=== PATIENT | male | born 1955 | race Asian ===

== ENCOUNTER 2021-12-11 08:42 | Observation (INO) | payer OTHER ==
[2021-12-11 09:00] VITALS: BMI 20.1
[2021-12-11] MEDS ORDERED: SODIUM CHLORIDE 1,000 ML IV SCH (09:00)
[2021-12-11 09:55] LABS: BASO % 0.4 % (0-2.0); EOS % 0.2 % (0-4.5); HEMATOCRIT 43.9 % (35.4-49); HEMOGLOBIN 14.6 GM/dL (11.7-16.9); LYMPH % 9.8 % (8-40); MCH 26.1 pg (25.7-33.7); MCHC 33.3 g/dl (32.0-35.9); MEAN CELL VOLUME 78.3 fl (80-96); MEAN PLT VOLUME 10.3 fl (7.5-11.1); MONO % 5.9 % (3.8-10.2); NEUT % 83.7 % (42.8-82.8); RBC 5.61 M/mm3 (4.00-5.60); RDW 14.3 % (11.9-15.9); WHITE BLOOD COUNT 8.8 K/mm3 (4.0-10.0)
[2021-12-11 10:00] LABS: PLATELET COUNT 106 10^3/uL (134-434)
[2021-12-11 10:08] LABS: INR 1.12 (0.83-1.09); PROTHROMBIN TIME (PATIENT) 12.9 SEC (9.7-13.0)
[2021-12-11 10:11] LABS: ACTIVATED PTT 26.9 SECONDS (25.2-36.5)
[2021-12-11 10:22] LABS: ALBUMIN 3.8 g/dl (3.4-5.0); BLOOD UREA NITROGEN 15.2 mg/dL (7-18)
[2021-12-11 10:25] LABS: CREATININE 1.4 mg/dL (0.55-1.3)
[2021-12-11 10:26] LABS: TOT PROT 6.9 g/dl (6.4-8.2)
[2021-12-11 10:28] LABS: BILIRUBIN,TOTAL 1.2 mg/dL (0.2-1)
[2021-12-11 11:41] LABS: PH,URINE 5.5 (5.0-8.0); URINE APPEARANCE CLEAR; URINE BILIRUBIN NEGATIVE (NEGATIVE); URINE COLOR YELLOW; URINE GLUCOSE (UA) TRACE (NEGATIVE); URINE KETONE NEGATIVE (NEGATIVE); URINE LEUK ESTERASE NEGATIVE (NEGATIVE); URINE NITRITE NEGATIVE (NEGATIVE); URINE PROTEIN TRACE (NEGATIVE); URINE UROBILINOGEN 0.2 mg/dL (0.2-1.0)
[2021-12-11] MEDS ORDERED: SODIUM CHLORIDE 0.45%/POT 20 MEQ/1,000 ML INFUS.BAG IV SCH (15:15)
[2021-12-11] MEDS: metoPROLOL SUCCINATE 25 MG TAB.SR.24H (FP) PO SCH (15:32)
[2021-12-11] MEDS ORDERED: metoPROLOL SUCCINATE 25 MG TAB.SR.24H (FP) ONE (16:01)
[2021-12-11] MEDS ORDERED: HEPARIN NA (PORCINE) 5,000 UNITS/ML 1ML VIAL SQ SCH (22:00)
[2021-12-11] MEDS ORDERED: ATORVASTATIN CA 40 MG TABLET (FP) PO SCH (22:00)
[2021-12-11] MEDS ORDERED: ATORVASTATIN CA 40 MG TABLET (FP) ONE (22:58)
[2021-12-11] MEDS ORDERED: HEPARIN NA (PORCINE) 5,000 UNITS/ML 1ML VIAL ONE (22:58)
[2021-12-12] MEDS ORDERED: PANTOPRAZOLE 40 MG TABLET ONE (09:06)
[2021-12-12] MEDS ORDERED: metoPROLOL SUCCINATE 25 MG TAB.SR.24H (FP) ONE (09:06)
[2021-12-12] MEDS ORDERED: ASPIRIN COATED 81 MG TABLET.EC ONE (09:06)
[2021-12-12 09:20] VITALS: PULSE 69
[2021-12-12] MEDS: metoPROLOL SUCCINATE 25 MG TAB.SR.24H (FP) PO SCH (09:20)
[2021-12-12] MEDS ORDERED: ASPIRIN COATED 81 MG TABLET.EC PO SCH (10:00)
[2021-12-12] MEDS ORDERED: PANTOPRAZOLE 40 MG TABLET PO SCH (10:00)
[2021-12-12 10:58] LABS: BASO % 0.4 % (0-2.0); EOS % 0.9 % (0-4.5); HEMATOCRIT 44.3 % (35.4-49); HEMOGLOBIN 15.1 GM/dL (11.7-16.9); LYMPH % 27.3 % (8-40); MCH 26.4 pg (25.7-33.7); MEAN CELL VOLUME 77.5 fl (80-96); MEAN PLT VOLUME 10.7 fl (7.5-11.1); MONO % 8.4 % (3.8-10.2); PLATELET COUNT 104 10^3/uL (134-434); RBC 5.71 M/mm3 (4.00-5.60); RDW 14.5 % (11.9-15.9); WHITE BLOOD COUNT 7.9 K/mm3 (4.0-10.0)
[2021-12-12 11:18] LABS: ALBUMIN 3.8 g/dl (3.4-5.0); CALCIUM 9.2 mg/dL (8.5-10.1)
[2021-12-12 11:19] LABS: BLOOD UREA NITROGEN 16.4 mg/dL (7-18)
[2021-12-12 11:21] LABS: CREATININE 1.4 mg/dL (0.55-1.3)
[2021-12-12 11:23] LABS: BILIRUBIN,TOTAL 1.2 mg/dL (0.2-1); TOT PROT 6.9 g/dl (6.4-8.2)
[2021-12-12 12:11] VITALS: BP 118/70; TEMP 98.1
== END 2021-12-12 13:03 | disposition home or self-care (01) ==
LOC: JER 08:42 → JERBED 11:48 → UNDOADMOB 11:48 → INTOOBSV 11:48 → UNDOADMIN 11:48 → JERBED 12-12 12:59 → UNDODISOB 12-12 13:03
PROVIDERS: ADMIT Family Medicine; ATTEND Family Medicine
PROC: 3E023GC Introduction of Other Therapeutic Substance into Muscle, Percutaneous Approach (ICD-10-PCS; principal; 2021-12-12)
PROC: 3E0337Z Introduction of Electrolytic and Water Balance Substance into Peripheral Vein, Percutaneous Approach (ICD-10-PCS; 2021-12-12)
DX: I25.10 Atherosclerotic heart disease of native coronary artery without angina pectoris (principal); R41.0 Disorientation, unspecified; E78.5 Hyperlipidemia, unspecified; I11.9 Hypertensive heart disease without heart failure; Z95.1 Presence of aortocoronary bypass graft; E11.9 Type 2 diabetes mellitus without complications; Z88.0 Allergy status to penicillin
CPT/HCPCS: 36415; 70450-TC; 70551-TC; 80053; 80061; 81003; 82550; 82553; 82962; 83036; 83735; 84443; 84484; 85025; 85610; 85730; 93005; 93010; 96360; 96372; 99285-25; C9803; G0378; J1644; J3480; U0003; U0005

== ENCOUNTER 2022-06-19 23:09 | Inpatient (IN) | payer OTHER ==
[2022-06-20 00:02] VITALS: BMI 16.0
[2022-06-20 00:53] LABS: INR 1.11 (0.83-1.09); PROTHROMBIN TIME (PATIENT) 12.8 SEC (9.7-13.0)
[2022-06-20 00:56] LABS: ACTIVATED PTT 29.1 SECONDS (25.2-36.5)
[2022-06-20 01:08] LABS: CALCIUM 9.7 mg/dL (8.5-10.1)
[2022-06-20 01:10] LABS: BLOOD UREA NITROGEN 18.3 mg/dL (7-18)
[2022-06-20 01:12] LABS: CREATININE 1.5 mg/dL (0.55-1.3)
[2022-06-20 01:14] LABS: TOT PROT 7.2 g/dl (6.4-8.2)
[2022-06-20 01:27] LABS: BASO % 0.6 % (0-2.0); EOS % 0.5 % (0-4.5); HEMATOCRIT 43.5 % (35.4-49); HEMOGLOBIN 14.5 GM/dL (11.7-16.9); LYMPH % 25.5 % (8-40); MCH 26.5 pg (25.7-33.7); MCHC 33.3 g/dl (32.0-35.9); MEAN CELL VOLUME 79.3 fl (80-96); MEAN PLT VOLUME 10.5 fl (7.5-11.1); MONO % 9.5 % (3.8-10.2); NEUT % 63.9 % (42.8-82.8); PLATELET COUNT 106 10^3/uL (134-434); RBC 5.48 M/mm3 (4.00-5.60); RDW 13.6 % (11.9-15.9); WHITE BLOOD COUNT 8.4 K/mm3 (4.0-10.0)
[2022-06-20 09:48] LABS: BASO % 0.7 % (0-2.0); EOS % 0.5 % (0-4.5); HEMATOCRIT 46.2 % (35.4-49); HEMOGLOBIN 15.5 GM/dL (11.7-16.9); LYMPH % 29.6 % (8-40); MCH 26.8 pg (25.7-33.7); MCHC 33.6 g/dl (32.0-35.9); MEAN CELL VOLUME 79.7 fl (80-96); MEAN PLT VOLUME 10.2 fl (7.5-11.1); MONO % 9.6 % (3.8-10.2); NEUT % 59.6 % (42.8-82.8); PLATELET COUNT 113 10^3/uL (134-434); RBC 5.79 M/mm3 (4.00-5.60); WHITE BLOOD COUNT 6.6 K/mm3 (4.0-10.0)
[2022-06-20 10:13] LABS: CALCIUM 9.9 mg/dL (8.5-10.1)
[2022-06-20 10:14] LABS: ALBUMIN 4.4 g/dl (3.4-5.0)
[2022-06-20 10:17] LABS: CREATININE 1.4 mg/dL (0.55-1.3); TOT PROT 7.8 g/dl (6.4-8.2)
[2022-06-20] MEDS ORDERED: ASPIRIN COATED 81 MG TABLET.EC ONE (12:02)
[2022-06-20] MEDS ORDERED: CLOPIDOGREL BISULFATE 75 MG TABLET (FP) ONE (12:02)
[2022-06-20] MEDS ORDERED: PANTOPRAZOLE 40 MG TABLET PO ONE (12:02)
[2022-06-20] MEDS: CLOPIDOGREL BISULFATE 75 MG TABLET (FP) PO SCH (12:26)
[2022-06-20] MEDS: PANTOPRAZOLE 40 MG TABLET PO SCH (12:28)
[2022-06-20] MEDS: ASPIRIN COATED 81 MG TABLET.EC PO SCH (12:28)
[2022-06-20] MEDS: metoPROLOL SUCCINATE 25 MG TAB.SR.24H (FP) PO SCH (12:28)
[2022-06-20 16:11] LABS: URINE APPEARANCE CLEAR; URINE BILIRUBIN NEGATIVE (NEGATIVE); URINE COLOR YELLOW; URINE GLUCOSE (UA) NEGATIVE (NEGATIVE); URINE KETONE NEGATIVE (NEGATIVE); URINE LEUK ESTERASE NEGATIVE (NEGATIVE); URINE NITRITE NEGATIVE (NEGATIVE); URINE PROTEIN NEGATIVE (NEGATIVE); URINE UROBILINOGEN 0.2 mg/dL (0.2-1.0)
[2022-06-20] MEDS: SODIUM CHLORIDE 1,000 ML IV SCH ×2 (16:34→23:45)
[2022-06-20] MEDS ORDERED: ATORVASTATIN CA 20 MG TABLET (FP) ONE (21:52)
[2022-06-20] MEDS: ATORVASTATIN CA 20 MG TABLET (FP) PO SCH (22:21)
[2022-06-21] MEDS ORDERED: ASPIRIN COATED 81 MG TABLET.EC ONE (10:20)
[2022-06-21] MEDS ORDERED: PANTOPRAZOLE 40 MG TABLET PO ONE (10:20)
[2022-06-21] MEDS ORDERED: CLOPIDOGREL BISULFATE 75 MG TABLET (FP) ONE (10:21)
[2022-06-21] MEDS ORDERED: metoPROLOL SUCCINATE 25 MG TAB.SR.24H (FP) PO ONE (10:21)
[2022-06-21] MEDS ORDERED: ISOSORBIDE MONONITRATE 30 MG TAB.SR.24H (FP) PO ONE ×2 (10:21→10:25)
[2022-06-21] MEDS ORDERED: LISINOPRIL 5 MG TABLET ONE (10:21)
[2022-06-21] MEDS: CLOPIDOGREL BISULFATE 75 MG TABLET (FP) PO SCH (10:29)
[2022-06-21] MEDS: PANTOPRAZOLE 40 MG TABLET PO SCH (10:29)
[2022-06-21] MEDS: ISOSORBIDE MONONITRATE 30 MG TAB.SR.24H (FP) PO SCH (10:29)
[2022-06-21] MEDS: ASPIRIN COATED 81 MG TABLET.EC PO SCH (10:29)
[2022-06-21] MEDS: LISINOPRIL 5 MG TABLET PO SCH (10:29)
[2022-06-21] MEDS: metoPROLOL SUCCINATE 25 MG TAB.SR.24H (FP) PO SCH (10:29)
[2022-06-21 16:40] LABS: URINE APPEARANCE CLEAR; URINE BILIRUBIN NEGATIVE (NEGATIVE); URINE COLOR YELLOW; URINE GLUCOSE (UA) NEGATIVE (NEGATIVE); URINE KETONE NEGATIVE (NEGATIVE); URINE LEUK ESTERASE NEGATIVE (NEGATIVE); URINE NITRITE NEGATIVE (NEGATIVE); URINE PROTEIN NEGATIVE (NEGATIVE); URINE UROBILINOGEN 0.2 mg/dL (0.2-1.0)
[2022-06-21] MEDS ORDERED: ATORVASTATIN CA 20 MG TABLET (FP) ONE (20:45)
[2022-06-21] MEDS: ATORVASTATIN CA 20 MG TABLET (FP) PO SCH (21:27)
[2022-06-21] MEDS: SODIUM CHLORIDE 1,000 ML IV SCH (23:45)
[2022-06-22] MEDS: PANTOPRAZOLE 40 MG TABLET PO SCH (10:56)
[2022-06-22] MEDS: TAMSULOSIN HCL 0.4 MG CAP PO SCH (10:56)
[2022-06-22] MEDS: ASPIRIN COATED 81 MG TABLET.EC PO SCH (10:56)
[2022-06-22] MEDS: ISOSORBIDE MONONITRATE 30 MG TAB.SR.24H (FP) PO SCH (10:56)
[2022-06-22] MEDS: metoPROLOL SUCCINATE 25 MG TAB.SR.24H (FP) PO SCH (10:56)
[2022-06-22] MEDS: CLOPIDOGREL BISULFATE 75 MG TABLET (FP) PO SCH (10:56)
[2022-06-22] MEDS: LISINOPRIL 5 MG TABLET PO SCH (10:56)
[2022-06-22 16:42] LABS: CALCIUM 8.6 mg/dL (8.5-10.1)
[2022-06-22 16:43] LABS: BLOOD UREA NITROGEN 11.1 mg/dL (7-18)
[2022-06-22 16:46] LABS: CREATININE 1.3 mg/dL (0.55-1.3)
[2022-06-22] MEDS: ATORVASTATIN CA 20 MG TABLET (FP) PO SCH (22:22)
[2022-06-23] MEDS: CLOPIDOGREL BISULFATE 75 MG TABLET (FP) PO SCH (10:05)
[2022-06-23] MEDS: ASPIRIN COATED 81 MG TABLET.EC PO SCH (10:05)
[2022-06-23] MEDS: ISOSORBIDE MONONITRATE 30 MG TAB.SR.24H (FP) PO SCH (10:05)
[2022-06-23] MEDS: LISINOPRIL 5 MG TABLET PO SCH (10:05)
[2022-06-23] MEDS: PANTOPRAZOLE 40 MG TABLET PO SCH (10:05)
[2022-06-23] MEDS: TAMSULOSIN HCL 0.4 MG CAP PO SCH (10:05)
[2022-06-23] MEDS: metoPROLOL SUCCINATE 25 MG TAB.SR.24H (FP) PO SCH (10:05)
[2022-06-23 18:54] VITALS: RESP 20
[2022-06-23] MEDS: SODIUM CHLORIDE 1,000 ML IV SCH (20:37)
[2022-06-23] MEDS: ATORVASTATIN CA 20 MG TABLET (FP) PO SCH ×2 (20:37→21:12)
[2022-06-23 22:27] VITALS: BP 102/67; PULSE 71; TEMP 71
== END 2022-06-23 21:30 | DRG 884 ==
LOC: JER 23:09 → JERBED 23:33 → J4W 06-22 06:02
PROVIDERS: ADMIT Internal Medicine; ATTEND Family Medicine
DX: F03.90 Unspecified dementia, unspecified severity, without behavioral disturbance, psychotic disturbance, mood disturbance, and anxiety (principal); E43 Unspecified severe protein-calorie malnutrition; G93.41 Metabolic encephalopathy; G45.9 Transient cerebral ischemic attack, unspecified; R47.01 Aphasia; R64 Cachexia; N17.9 Acute kidney failure, unspecified; Z68.1 Body mass index [BMI] 19.9 or less, adult; I25.10 Atherosclerotic heart disease of native coronary artery without angina pectoris; I10 Essential (primary) hypertension; K21.9 Gastro-esophageal reflux disease without esophagitis; E11.9 Type 2 diabetes mellitus without complications; E78.5 Hyperlipidemia, unspecified; R55 Syncope and collapse; R47.1 Dysarthria and anarthria; E11.22 Type 2 diabetes mellitus with diabetic chronic kidney disease; I12.9 Hypertensive chronic kidney disease with stage 1 through stage 4 chronic kidney disease, or unspecified chronic kidney disease; N18.9 Chronic kidney disease, unspecified; R33.8 Other retention of urine; N31.9 Neuromuscular dysfunction of bladder, unspecified; D69.6 Thrombocytopenia, unspecified
CPT/HCPCS: 0241U-QW; 36415; 70450-TC; 70551-TC; 71045-TC-FY; 76775-TC; 76856-TC; 80048; 80053; 80061; 81003; 82550; 82962; 83036; 84484; 85025; 85610; 85730; 86850; 86900; 86901; 87086; 93005; 93010; 93306-TC; 97116-GP; 97162-GP; 99285-25

== ENCOUNTER 2022-07-26 03:33 | Inpatient (IN) | payer OTHER, BC ==
[2022-07-26] MEDS ORDERED: VANCOMYCIN 1 GM in D5W (PRE-DOCKED) 1,000 MG/250 ML IVPB ONE (03:55)
[2022-07-26] MEDS ORDERED: MEROPENEM 1 GM in DEXTROSE 5%-WATER 100 ML IVPB ONE (03:57)
[2022-07-26] MEDS ORDERED: MEROPENEM 1 GM VIAL (RESTRICTED TO ID) IVPB ONE ×2 (04:00→04:10)
[2022-07-26] MEDS ORDERED: SODIUM CHLORIDE 0.9% 500 ML INFUS.BAG IV ONE (04:01)
[2022-07-26 04:04] LABS: BASO % 0.3 % (0-2.0); HEMATOCRIT 43.4 % (35.4-49); LYMPH % 5.4 % (8-40); MCH 26.1 pg (25.7-33.7); MCHC 32.4 g/dl (32.0-35.9); MEAN CELL VOLUME 80.7 fl (80-96); MEAN PLT VOLUME 11.1 fl (7.5-11.1); MONO % 4.3 % (3.8-10.2); PLATELET COUNT 107 10^3/uL (134-434); RBC 5.37 M/mm3 (4.00-5.60); RDW 14.4 % (11.9-15.9); WHITE BLOOD COUNT 14.7 K/mm3 (4.0-10.0)
[2022-07-26] MEDS ORDERED: VANCOMYCIN/WATER FOR INJ (PEG) 1,000 MG/200 ML BAG IVPB ONE (04:08)
[2022-07-26 04:11] LABS: VENOUS BASE EXCESS -6.7 mmol/L (-2-2); VENOUS O2 SATURATION 65.4 % (70-80); VENOUS PH 7.252 (7.310-7.410)
[2022-07-26 04:13] LABS: INR 1.02 (0.83-1.09); PROTHROMBIN TIME (PATIENT) 11.7 SEC (9.7-13.0)
[2022-07-26 04:15] LABS: ACTIVATED PTT 30.6 SECONDS (25.2-36.5)
[2022-07-26 04:22] LABS: CALCIUM 8.7 mg/dL (8.5-10.1)
[2022-07-26 04:23] LABS: BLOOD UREA NITROGEN 17.3 mg/dL (7-18)
[2022-07-26 04:26] LABS: CREATININE 1.1 mg/dL (0.55-1.3)
[2022-07-26 04:28] LABS: BILIRUBIN,TOTAL 0.7 mg/dL (0.2-1); TOT PROT 6.2 g/dl (6.4-8.2)
[2022-07-26] MEDS ORDERED: DEXAMETHASONE SOD PHOSPHATE 4 MG/1 ML VIAL IVPUSH ONE (04:30)
[2022-07-26] MEDS ORDERED: REMDESIVIR 200 MG in SODIUM CHLORIDE 250 ML IVPB ONE (04:33)
[2022-07-26] MEDS ORDERED: DEXAMETHASONE SOD PHOSPHATE 10 MG/1 ML VIAL ONE (04:37)
[2022-07-26] MEDS ORDERED: ACETAMINOPHEN 1000 MG/100 ML BAG IVPB ONE (05:08)
[2022-07-26 05:19] LABS: LACTIC ACID 3.2 mmol/L (0.4-2.0)
[2022-07-26] MEDS ORDERED: ACETAMINOPHEN INJECTION 100 ML IVPB ONE (06:42)
[2022-07-26 08:20] LABS: EPI CELLS 9 /uL (0-25.1); HYALINE CASTS 2 /uL (0-3.1); URINE APPEARANCE CLOUDY; URINE BACTERIA 240 /uL (0-1359); URINE BILIRUBIN NEGATIVE (NEGATIVE); URINE COLOR YELLOW; URINE GLUCOSE (UA) 3+ (NEGATIVE); URINE KETONE TRACE (NEGATIVE); URINE LEUK ESTERASE 1+ (NEGATIVE); URINE NITRITE NEGATIVE (NEGATIVE); URINE PROTEIN 2+ (NEGATIVE); URINE RBC 1207 /uL (0-23.9); URINE UROBILINOGEN 0.2 mg/dL (0.2-1.0); URINE WBC 3177 /uL (0-25.8)
[2022-07-26] MEDS: CEFEPIME 1 GM in DEXTROSE 5%-WATER - 50 ML IVPB SCH ×2 (14:11→17:49)
[2022-07-26] MEDS: SODIUM CHLORIDE 1,000 ML IV SCH (17:39)
[2022-07-26] MEDS: INSULIN SLIDING SCALE (NOVOLOG) 1 VIAL SQ SCH ×3 (18:04→21:34)
[2022-07-27] MEDS: CEFEPIME 1 GM in DEXTROSE 5%-WATER - 50 ML IVPB SCH ×3 (01:20→17:01)
[2022-07-27] MEDS: REMDESIVIR 100 MG in SODIUM CHLORIDE 250 ML IVPB SCH (06:14)
[2022-07-27] MEDS: INSULIN SLIDING SCALE (NOVOLOG) 1 VIAL SQ SCH ×4 (06:35→21:16)
[2022-07-27] MEDS ORDERED: DEXAMETHASONE SOD PHOSPHATE 10 MG/1 ML VIAL IM SCH (10:00)
[2022-07-27] MEDS: MEMANTINE HCL 5 MG TABLET (UD) PO SCH (10:05)
[2022-07-27] MEDS: CLOPIDOGREL BISULFATE 75 MG TABLET (FP) PO SCH (10:05)
[2022-07-27] MEDS: LISINOPRIL 5 MG TABLET PO SCH (10:05)
[2022-07-27] MEDS: DEXAMETHASONE SOD PHOSPHATE 10 MG/1 ML VIAL IVPUSH SCH (10:05)
[2022-07-27] MEDS: PANTOPRAZOLE 40 MG TABLET PO SCH (10:05)
[2022-07-27] MEDS: metoPROLOL SUCCINATE 25 MG TAB.SR.24H (FP) PO SCH (10:06)
[2022-07-27] MEDS: TAMSULOSIN HCL 0.4 MG CAP PO SCH ×2 (10:06→11:46)
[2022-07-27] MEDS: ASPIRIN COATED 81 MG TABLET.EC PO SCH (10:06)
[2022-07-27] MEDS: SODIUM CHLORIDE 1,000 ML IV SCH ×2 (14:01→19:30)
[2022-07-27 15:11] VITALS: BMI 16.7
[2022-07-28] MEDS: CEFEPIME 1 GM in DEXTROSE 5%-WATER - 50 ML IVPB SCH ×3 (01:24→17:09)
[2022-07-28] MEDS: INSULIN SLIDING SCALE (NOVOLOG) 1 VIAL SQ SCH ×4 (06:26→21:32)
[2022-07-28] MEDS: REMDESIVIR 100 MG in SODIUM CHLORIDE 250 ML IVPB SCH (06:37)
[2022-07-28] MEDS: DEXAMETHASONE SOD PHOSPHATE 10 MG/1 ML VIAL IVPUSH SCH (09:41)
[2022-07-28] MEDS: TAMSULOSIN HCL 0.4 MG CAP PO SCH ×2 (09:41→10:12)
[2022-07-28] MEDS: CLOPIDOGREL BISULFATE 75 MG TABLET (FP) PO SCH (09:41)
[2022-07-28] MEDS: MEMANTINE HCL 5 MG TABLET (UD) PO SCH (09:42)
[2022-07-28] MEDS: LISINOPRIL 5 MG TABLET PO SCH (09:42)
[2022-07-28] MEDS: ASPIRIN COATED 81 MG TABLET.EC PO SCH (09:42)
[2022-07-28] MEDS: metoPROLOL SUCCINATE 25 MG TAB.SR.24H (FP) PO SCH (09:42)
[2022-07-28] MEDS: PANTOPRAZOLE 40 MG TABLET PO SCH (09:42)
[2022-07-28 11:45] LABS: HEMATOCRIT 39.4 % (35.4-49); HEMOGLOBIN 12.9 GM/dL (11.7-16.9); MCH 26.1 pg (25.7-33.7); MCHC 32.8 g/dl (32.0-35.9); MEAN CELL VOLUME 79.7 fl (80-96); MEAN PLT VOLUME 10.9 fl (7.5-11.1); PLATELET COUNT 160 10^3/uL (134-434); RBC 4.95 M/mm3 (4.00-5.60); RDW 14.1 % (11.9-15.9); WHITE BLOOD COUNT 17.5 K/mm3 (4.0-10.0)
[2022-07-28 12:38] LABS: ANISOCYTOSIS 1+; MACROCYTOSIS 0
[2022-07-28] MEDS: SODIUM CHLORIDE 1,000 ML IV SCH ×2 (17:11→19:34)
[2022-07-29] MEDS: CEFEPIME 1 GM in DEXTROSE 5%-WATER - 50 ML IVPB SCH ×3 (01:08→17:17)
[2022-07-29] MEDS: REMDESIVIR 100 MG in SODIUM CHLORIDE 250 ML IVPB SCH (06:34)
[2022-07-29] MEDS: INSULIN SLIDING SCALE (NOVOLOG) 1 VIAL SQ SCH ×4 (06:36→21:38)
[2022-07-29] MEDS: TAMSULOSIN HCL 0.4 MG CAP PO SCH (07:53)
[2022-07-29] MEDS: DEXAMETHASONE SOD PHOSPHATE 10 MG/1 ML VIAL IVPUSH SCH (09:12)
[2022-07-29] MEDS: metoPROLOL SUCCINATE 25 MG TAB.SR.24H (FP) PO SCH (09:12)
[2022-07-29] MEDS: ASPIRIN COATED 81 MG TABLET.EC PO SCH (09:12)
[2022-07-29] MEDS: LISINOPRIL 5 MG TABLET PO SCH (09:12)
[2022-07-29] MEDS: PANTOPRAZOLE 40 MG TABLET PO SCH (09:12)
[2022-07-29] MEDS: CLOPIDOGREL BISULFATE 75 MG TABLET (FP) PO SCH (09:12)
[2022-07-29] MEDS: MEMANTINE HCL 5 MG TABLET (UD) PO SCH (10:40)
[2022-07-29] MEDS: SODIUM CHLORIDE 1,000 ML IV SCH (19:20)
[2022-07-30] MEDS: SODIUM CHLORIDE 1,000 ML IV SCH (00:54)
[2022-07-30] MEDS ORDERED: CEFEPIME HCL 1 GM VIAL (RESTRICTED TO ID) ONE (01:45)
[2022-07-30] MEDS: CEFEPIME 1 GM in DEXTROSE 5%-WATER - 50 ML IVPB SCH ×3 (02:48→17:42)
[2022-07-30] MEDS ORDERED: REMDESIVIR 100 MG in SODIUM CHLORIDE 250 ML IVPB SCH (05:00)
[2022-07-30] MEDS: INSULIN SLIDING SCALE (NOVOLOG) 1 VIAL SQ SCH ×4 (07:00→21:59)
[2022-07-30] MEDS: LISINOPRIL 5 MG TABLET PO SCH (12:00)
[2022-07-30] MEDS: DEXAMETHASONE SOD PHOSPHATE 10 MG/1 ML VIAL IVPUSH SCH (12:00)
[2022-07-30] MEDS: metoPROLOL SUCCINATE 25 MG TAB.SR.24H (FP) PO SCH (12:01)
[2022-07-30] MEDS: ASPIRIN COATED 81 MG TABLET.EC PO SCH (12:01)
[2022-07-30] MEDS: CLOPIDOGREL BISULFATE 75 MG TABLET (FP) PO SCH (12:01)
[2022-07-30] MEDS: PANTOPRAZOLE 40 MG TABLET PO SCH (12:01)
[2022-07-30] MEDS: TAMSULOSIN HCL 0.4 MG CAP PO SCH (12:01)
[2022-07-30] MEDS: MEMANTINE HCL 5 MG TABLET (UD) PO SCH (12:42)
[2022-07-31] MEDS: CEFEPIME 1 GM in DEXTROSE 5%-WATER - 50 ML IVPB SCH ×2 (01:33→11:59)
[2022-07-31] MEDS: SODIUM CHLORIDE 1,000 ML IV SCH (01:42)
[2022-07-31] MEDS: INSULIN SLIDING SCALE (NOVOLOG) 1 VIAL SQ SCH ×4 (06:07→23:08)
[2022-07-31] MEDS: TAMSULOSIN HCL 0.4 MG CAP PO SCH (10:00)
[2022-07-31] MEDS: DEXAMETHASONE SOD PHOSPHATE 10 MG/1 ML VIAL IVPUSH SCH (11:56)
[2022-07-31] MEDS: CLOPIDOGREL BISULFATE 75 MG TABLET (FP) PO SCH (11:58)
[2022-07-31] MEDS: MEMANTINE HCL 5 MG TABLET (UD) PO SCH (11:58)
[2022-07-31] MEDS: LISINOPRIL 5 MG TABLET PO SCH (11:59)
[2022-07-31] MEDS: ASPIRIN COATED 81 MG TABLET.EC PO SCH (11:59)
[2022-07-31] MEDS: metoPROLOL SUCCINATE 25 MG TAB.SR.24H (FP) PO SCH (12:02)
[2022-07-31] MEDS: PANTOPRAZOLE 40 MG TABLET PO SCH (12:02)
[2022-07-31 12:48] LABS: HEMATOCRIT 40.5 % (35.4-49); HEMOGLOBIN 13.2 GM/dL (11.7-16.9); MCH 26.1 pg (25.7-33.7); MCHC 32.6 g/dl (32.0-35.9); MEAN CELL VOLUME 80.1 fl (80-96); MEAN PLT VOLUME 10.6 fl (7.5-11.1); PLATELET COUNT 234 10^3/uL (134-434); RBC 5.05 M/mm3 (4.00-5.60); RDW 14.6 % (11.9-15.9); WHITE BLOOD COUNT 13.8 K/mm3 (4.0-10.0)
[2022-07-31 13:06] LABS: ALBUMIN 2.6 g/dl (3.4-5.0); BLOOD UREA NITROGEN 23.4 mg/dL (7-18); CALCIUM 8.9 mg/dL (8.5-10.1)
[2022-07-31 13:11] LABS: BILIRUBIN,TOTAL 0.8 mg/dL (0.2-1); TOT PROT 5.3 g/dl (6.4-8.2)
[2022-07-31] MEDS ORDERED: INSULIN REGULAR HUMAN 100 UNITS/ML *VIAL SQ ONE (17:08)
[2022-07-31] MEDS: CEFTRIAXONE 1 GM in DEXTROSE 5%-WATER - 50 ML IVPB SCH (17:37)
[2022-07-31 20:36] LABS: GLUCOSE,RANDOM 484 mg/dL (74-106)
[2022-07-31] MEDS ORDERED: INSULIN (NOVOLOG) ASPART 100 UNITS/ML 10ML VIAL SQ ONE (21:16)
[2022-07-31] MEDS ORDERED: INSULIN (LEVEMIR) 100 UNITS/ML UNITS SQ SCH ×2 (22:00)
[2022-08-01] MEDS: INSULIN SLIDING SCALE (NOVOLOG) 1 VIAL SQ SCH ×4 (07:58→23:42)
[2022-08-01 09:20] LABS: HEMATOCRIT 39.5 % (35.4-49); MCH 26.1 pg (25.7-33.7); MEAN CELL VOLUME 79.2 fl (80-96); MEAN PLT VOLUME 9.9 fl (7.5-11.1); PLATELET COUNT 253 10^3/uL (134-434); RBC 4.98 M/mm3 (4.00-5.60); RDW 14.4 % (11.9-15.9); WHITE BLOOD COUNT 14.8 K/mm3 (4.0-10.0)
[2022-08-01 09:49] LABS: ALBUMIN 2.4 g/dl (3.4-5.0); BLOOD UREA NITROGEN 22.1 mg/dL (7-18); CALCIUM 8.5 mg/dL (8.5-10.1)
[2022-08-01 09:51] LABS: CREATININE 0.8 mg/dL (0.55-1.3)
[2022-08-01 09:53] LABS: BILIRUBIN,TOTAL 0.6 mg/dL (0.2-1); TOT PROT 5.1 g/dl (6.4-8.2)
[2022-08-01] MEDS: MEMANTINE HCL 5 MG TABLET (UD) PO SCH (10:41)
[2022-08-01] MEDS: CEFTRIAXONE 1 GM in DEXTROSE 5%-WATER - 50 ML IVPB SCH (10:41)
[2022-08-01] MEDS: TAMSULOSIN HCL 0.4 MG CAP PO SCH (10:42)
[2022-08-01] MEDS: LISINOPRIL 5 MG TABLET PO SCH ×2 (10:42→10:45)
[2022-08-01] MEDS: metoPROLOL SUCCINATE 25 MG TAB.SR.24H (FP) PO SCH (10:42)
[2022-08-01] MEDS: ASPIRIN COATED 81 MG TABLET.EC PO SCH (10:42)
[2022-08-01] MEDS: CLOPIDOGREL BISULFATE 75 MG TABLET (FP) PO SCH (10:42)
[2022-08-01] MEDS: PANTOPRAZOLE 40 MG TABLET PO SCH (10:42)
[2022-08-01] MEDS: DEXAMETHASONE SOD PHOSPHATE 10 MG/1 ML VIAL IVPUSH SCH (10:43)
[2022-08-01] MEDS: INSULIN (LEVEMIR) 100 UNITS/ML UNITS SQ SCH (23:27)
[2022-08-01] MEDS: QUEtiapine FUMARATE 25 MG TABLET PO SCH (23:27)
[2022-08-02] MEDS: INSULIN SLIDING SCALE (NOVOLOG) 1 VIAL SQ SCH ×4 (07:27→23:10)
[2022-08-02] MEDS: DEXAMETHASONE SOD PHOSPHATE 10 MG/1 ML VIAL IVPUSH SCH (09:15)
[2022-08-02] MEDS: CEFTRIAXONE 1 GM in DEXTROSE 5%-WATER - 50 ML IVPB SCH (09:15)
[2022-08-02] MEDS: LISINOPRIL 5 MG TABLET PO SCH (09:16)
[2022-08-02] MEDS: ASPIRIN COATED 81 MG TABLET.EC PO SCH (09:16)
[2022-08-02] MEDS: CLOPIDOGREL BISULFATE 75 MG TABLET (FP) PO SCH (09:16)
[2022-08-02] MEDS: PANTOPRAZOLE 40 MG TABLET PO SCH (09:16)
[2022-08-02] MEDS: metoPROLOL SUCCINATE 25 MG TAB.SR.24H (FP) PO SCH (09:16)
[2022-08-02] MEDS: TAMSULOSIN HCL 0.4 MG CAP PO SCH (09:16)
[2022-08-02] MEDS: MEMANTINE HCL 5 MG TABLET (UD) PO SCH (09:17)
[2022-08-02 09:45] LABS: HEMATOCRIT 37.7 % (35.4-49); HEMOGLOBIN 12.4 GM/dL (11.7-16.9); MCH 26.2 pg (25.7-33.7); MCHC 32.8 g/dl (32.0-35.9); MEAN PLT VOLUME 9.7 fl (7.5-11.1); PLATELET COUNT 212 10^3/uL (134-434); RBC 4.71 M/mm3 (4.00-5.60); RDW 14.3 % (11.9-15.9); WHITE BLOOD COUNT 10.5 K/mm3 (4.0-10.0)
[2022-08-02 09:56] LABS: CALCIUM 8.2 mg/dL (8.5-10.1)
[2022-08-02 09:57] LABS: ALBUMIN 2.2 g/dl (3.4-5.0)
[2022-08-02 09:59] LABS: CREATININE 0.7 mg/dL (0.55-1.3)
[2022-08-02 10:01] LABS: BILIRUBIN,TOTAL 0.6 mg/dL (0.2-1); TOT PROT 4.6 g/dl (6.4-8.2)
[2022-08-02] MEDS: QUEtiapine FUMARATE 25 MG TABLET PO SCH (23:08)
[2022-08-02] MEDS: INSULIN (LEVEMIR) 100 UNITS/ML UNITS SQ SCH (23:09)
[2022-08-03] MEDS: INSULIN SLIDING SCALE (NOVOLOG) 1 VIAL SQ SCH ×4 (07:28→21:58)
[2022-08-03] MEDS: ASPIRIN COATED 81 MG TABLET.EC PO SCH (10:37)
[2022-08-03] MEDS: metoPROLOL SUCCINATE 25 MG TAB.SR.24H (FP) PO SCH (10:37)
[2022-08-03] MEDS: LISINOPRIL 5 MG TABLET PO SCH (10:37)
[2022-08-03] MEDS: CLOPIDOGREL BISULFATE 75 MG TABLET (FP) PO SCH (10:37)
[2022-08-03] MEDS: PANTOPRAZOLE 40 MG TABLET PO SCH (10:37)
[2022-08-03] MEDS: DEXAMETHASONE SOD PHOSPHATE 10 MG/1 ML VIAL IVPUSH SCH (10:37)
[2022-08-03] MEDS: TAMSULOSIN HCL 0.4 MG CAP PO SCH (10:37)
[2022-08-03] MEDS: CEFTRIAXONE 1 GM in DEXTROSE 5%-WATER - 50 ML IVPB SCH (10:38)
[2022-08-03] MEDS: MEMANTINE HCL 5 MG TABLET (UD) PO SCH (10:38)
[2022-08-03] MEDS: QUEtiapine FUMARATE 25 MG TABLET PO SCH (21:49)
[2022-08-03] MEDS: INSULIN (LEVEMIR) 100 UNITS/ML UNITS SQ SCH (21:50)
[2022-08-04] MEDS: INSULIN SLIDING SCALE (NOVOLOG) 1 VIAL SQ SCH ×4 (06:19→21:31)
[2022-08-04] MEDS: TAMSULOSIN HCL 0.4 MG CAP PO SCH (08:15)
[2022-08-04 09:04] LABS: HEMATOCRIT 36.2 % (35.4-49); HEMOGLOBIN 11.8 GM/dL (11.7-16.9); MCH 26.3 pg (25.7-33.7); MCHC 32.5 g/dl (32.0-35.9); MEAN CELL VOLUME 80.7 fl (80-96); MEAN PLT VOLUME 10.5 fl (7.5-11.1); PLATELET COUNT 178 10^3/uL (134-434); RBC 4.49 M/mm3 (4.00-5.60); RDW 14.4 % (11.9-15.9); WHITE BLOOD COUNT 17.7 K/mm3 (4.0-10.0)
[2022-08-04] MEDS ORDERED: DEXAMETHASONE SOD PHOSPHATE 10 MG/1 ML VIAL IM ONE (10:00)
[2022-08-04] MEDS: PANTOPRAZOLE 40 MG TABLET PO SCH (10:23)
[2022-08-04] MEDS: CLOPIDOGREL BISULFATE 75 MG TABLET (FP) PO SCH (10:23)
[2022-08-04] MEDS: ASPIRIN COATED 81 MG TABLET.EC PO SCH (10:23)
[2022-08-04] MEDS: metoPROLOL SUCCINATE 25 MG TAB.SR.24H (FP) PO SCH (10:23)
[2022-08-04] MEDS: LISINOPRIL 5 MG TABLET PO SCH (10:23)
[2022-08-04] MEDS: MEMANTINE HCL 5 MG TABLET (UD) PO SCH (10:24)
[2022-08-04] MEDS: ATORVASTATIN CA 40 MG TABLET (FP) PO SCH (21:18)
[2022-08-04] MEDS: INSULIN (LEVEMIR) 100 UNITS/ML UNITS SQ SCH (21:19)
[2022-08-04] MEDS: QUEtiapine FUMARATE 25 MG TABLET PO SCH (21:19)
[2022-08-04 23:21] VITALS: RESP 20
[2022-08-05] MEDS: INSULIN SLIDING SCALE (NOVOLOG) 1 VIAL SQ SCH ×4 (06:41→22:59)
[2022-08-05] MEDS: ASPIRIN COATED 81 MG TABLET.EC PO SCH (09:52)
[2022-08-05] MEDS: PANTOPRAZOLE 40 MG TABLET PO SCH (09:52)
[2022-08-05] MEDS: CLOPIDOGREL BISULFATE 75 MG TABLET (FP) PO SCH (09:52)
[2022-08-05] MEDS: TAMSULOSIN HCL 0.4 MG CAP PO SCH (09:52)
[2022-08-05 09:59] LABS: HEMATOCRIT 37.7 % (35.4-49); HEMOGLOBIN 12.3 GM/dL (11.7-16.9); MCH 26.2 pg (25.7-33.7); MCHC 32.5 g/dl (32.0-35.9); MEAN CELL VOLUME 80.5 fl (80-96); MEAN PLT VOLUME 10.5 fl (7.5-11.1); PLATELET COUNT 148 10^3/uL (134-434); RBC 4.68 M/mm3 (4.00-5.60); WHITE BLOOD COUNT 14.7 K/mm3 (4.0-10.0)
[2022-08-05] MEDS: MEMANTINE HCL 5 MG TABLET (UD) PO SCH (10:58)
[2022-08-05] MEDS: LISINOPRIL 5 MG TABLET PO SCH ×2 (13:20→13:29)
[2022-08-05] MEDS: metoPROLOL SUCCINATE 25 MG TAB.SR.24H (FP) PO SCH ×2 (13:20→13:30)
[2022-08-05] MEDS: INSULIN (LEVEMIR) 100 UNITS/ML UNITS SQ SCH (22:58)
[2022-08-05] MEDS: ATORVASTATIN CA 40 MG TABLET (FP) PO SCH (22:59)
[2022-08-05] MEDS: QUEtiapine FUMARATE 25 MG TABLET PO SCH (22:59)
[2022-08-06] MEDS: INSULIN SLIDING SCALE (NOVOLOG) 1 VIAL SQ SCH ×2 (06:01→11:45)
[2022-08-06] MEDS: metoPROLOL SUCCINATE 25 MG TAB.SR.24H (FP) PO SCH (09:34)
[2022-08-06] MEDS: ASPIRIN COATED 81 MG TABLET.EC PO SCH (09:34)
[2022-08-06] MEDS: LISINOPRIL 5 MG TABLET PO SCH (09:34)
[2022-08-06] MEDS: PANTOPRAZOLE 40 MG TABLET PO SCH (09:34)
[2022-08-06] MEDS: CLOPIDOGREL BISULFATE 75 MG TABLET (FP) PO SCH (09:34)
[2022-08-06] MEDS: TAMSULOSIN HCL 0.4 MG CAP PO SCH (09:34)
[2022-08-06] MEDS: MEMANTINE HCL 5 MG TABLET (UD) PO SCH (09:34)
[2022-08-06 15:35] VITALS: BP 100/53; PULSE 73; TEMP 98.2
== END 2022-08-06 18:34 | DRG 871 ==
LOC: JER 03:33 → JERBED 04:25 → JICU 11:07 → J8W 07-29 23:35
PROVIDERS: ADMIT Internal Medicine; ATTEND Internal Medicine
PROC: XW033E5 Introduction of Remdesivir Anti-infective into Peripheral Vein, Percutaneous Approach, New Technology Group 5 (ICD-10-PCS; principal; 2022-07-26)
DX: A41.9 Sepsis, unspecified organism (principal); E11.00 Type 2 diabetes mellitus with hyperosmolarity without nonketotic hyperglycemic-hyperosmolar coma (NKHHC); G92.8 Other toxic encephalopathy; G93.41 Metabolic encephalopathy; U07.1 COVID-19; J12.82 Pneumonia due to coronavirus disease 2019; J96.01 Acute respiratory failure with hypoxia; N39.0 Urinary tract infection, site not specified; E87.0 Hyperosmolality and hypernatremia; I24.8 Other forms of acute ischemic heart disease; R64 Cachexia; Z68.1 Body mass index [BMI] 19.9 or less, adult; I10 Essential (primary) hypertension; E78.5 Hyperlipidemia, unspecified; I25.10 Atherosclerotic heart disease of native coronary artery without angina pectoris; Z95.5 Presence of coronary angioplasty implant and graft; K21.9 Gastro-esophageal reflux disease without esophagitis; Z88.0 Allergy status to penicillin; E11.65 Type 2 diabetes mellitus with hyperglycemia; R33.9 Retention of urine, unspecified; F03.90 Unspecified dementia, unspecified severity, without behavioral disturbance, psychotic disturbance, mood disturbance, and anxiety; N40.0 Benign prostatic hyperplasia without lower urinary tract symptoms; E11.649 Type 2 diabetes mellitus with hypoglycemia without coma; R13.10 Dysphagia, unspecified; D72.829 Elevated white blood cell count, unspecified; I07.1 Rheumatic tricuspid insufficiency; R10.30 Lower abdominal pain, unspecified; R41.1 Anterograde amnesia; R82.79 Other abnormal findings on microbiological examination of urine; R65.20 Severe sepsis without septic shock
CPT/HCPCS: 0241U-QW; 36415; 71045-TC-FY; 80053; 81003; 82550; 82553; 82803; 82947; 82962; 83605; 84484; 85025; 85027; 85610; 85730; 86140; 86850; 86900; 86901; 87040; 87086; 87186; 87899; 93005; 93010; 97116-GP; 97161-GP; 99285-25; C9399; C9803-CS; J1100; U0003; U0005

== ENCOUNTER 2022-08-24 21:23 | Inpatient (IN) | payer OTHER, BC ==
[2022-08-24] MEDS ORDERED: LACTATED RINGERS SOLUTION 1000 ML INFUS.BAG IV ONE (22:26)
[2022-08-24] MEDS ORDERED: VANCOMYCIN 1 GM in D5W (PRE-DOCKED) 1,000 MG/250 ML IVPB ONE (22:27)
[2022-08-24] MEDS ORDERED: CEFEPIME HCL/D5W 1 GM/50 ML BAG IVPB ONE (22:30)
[2022-08-24] MEDS ORDERED: CEFEPIME HCL/D5W 2 GM/50 ML BAG IVPB ONE (22:32)
[2022-08-24 22:45] LABS: BASO % 0.5 % (0-2.0); EOS % 0.9 % (0-4.5); HEMATOCRIT 44.4 % (35.4-49); LYMPH % 14.6 % (8-40); MCH 26.4 pg (25.7-33.7); MCHC 31.6 g/dl (32.0-35.9); MEAN CELL VOLUME 83.6 fl (80-96); MEAN PLT VOLUME 10.3 fl (7.5-11.1); MONO % 6.5 % (3.8-10.2); NEUT % 77.5 % (42.8-82.8); PLATELET COUNT 252 10^3/uL (134-434); RBC 5.32 M/mm3 (4.00-5.60); RDW 15.8 % (11.9-15.9); WHITE BLOOD COUNT 14.5 K/mm3 (4.0-10.0)
[2022-08-24] MEDS ORDERED: VANCOMYCIN/WATER FOR INJ (PEG) 1,000 MG/200 ML BAG IVPB ONE (23:03)
[2022-08-24] MEDS ORDERED: CEFEPIME 2 GM/100 ML BAG IVPB ONE (23:03)
[2022-08-24 23:04] LABS: CHLORIDE 130 mmol/L (98-107)
[2022-08-24 23:06] LABS: CALCIUM 9.4 mg/dL (8.5-10.1)
[2022-08-24 23:07] LABS: ALBUMIN 2.9 g/dl (3.4-5.0); BLOOD UREA NITROGEN 64.5 mg/dL (7-18); CO2 32 mmol/L (21-32); GLUCOSE,RANDOM 282 mg/dL (74-106)
[2022-08-24 23:10] LABS: CREATININE 2.1 mg/dL (0.55-1.3); SGOT/AST 11 U/L (15-37); SGPT/ALT 16 U/L (13-61)
[2022-08-24 23:11] LABS: BILIRUBIN,TOTAL 0.4 mg/dL (0.2-1)
[2022-08-24 23:12] LABS: TOT PROT 7.2 g/dl (6.4-8.2)
[2022-08-24 23:13] LABS: ALK PHOS 122 U/L (45-117)
[2022-08-24 23:20] LABS: LACTIC ACID 4.5 mmol/L (0.4-2.0)
[2022-08-24 23:21] LABS: ANION GAP 6 MMOL/L (8-16); SODIUM 168 mmol/L (136-145)
[2022-08-24] MEDS ORDERED: SODIUM CHLORIDE 1,000 ML IV STA (23:43)
[2022-08-24 23:59] LABS: EPI CELLS 6 /uL (0-25.1); HYALINE CASTS 3 /uL (0-3.1); PH,URINE 5.5 (5.0-8.0); URINE APPEARANCE TURBID; URINE BACTERIA 17 /uL (0-1359); URINE BILIRUBIN NEGATIVE (NEGATIVE); URINE COLOR YELLOW; URINE GLUCOSE (UA) 3+ (NEGATIVE); URINE KETONE NEGATIVE (NEGATIVE); URINE LEUK ESTERASE 2+ (NEGATIVE); URINE NITRITE NEGATIVE (NEGATIVE); URINE PROTEIN 1+ (NEGATIVE); URINE RBC 149 /uL (0-23.9); URINE UROBILINOGEN 0.2 mg/dL (0.2-1.0); URINE WBC 7148 /uL (0-25.8)
[2022-08-25 05:21] LABS: CHLORIDE 130 mmol/L (98-107)
[2022-08-25 05:23] LABS: BLOOD UREA NITROGEN 56.7 mg/dL (7-18); CALCIUM 8.7 mg/dL (8.5-10.1); CO2 32 mmol/L (21-32); GLUCOSE,RANDOM 244 mg/dL (74-106); MAGNESIUM 2.8 mg/dL (1.8-2.4)
[2022-08-25 05:26] LABS: CREATININE 1.7 mg/dL (0.55-1.3); PHOSPHOROUS 3.8 mg/dL (2.5-4.9)
[2022-08-25 06:12] LABS: ANION GAP 3 MMOL/L (8-16); SODIUM 166 mmol/L (136-145)
[2022-08-25] MEDS ORDERED: DEXTROSE 5%-WATER 500 ML PVC-FREE INFUS.BAG IV ONE (06:26)
[2022-08-25] MEDS ORDERED: DEXTROSE 5%-WATER - 1,000 ML IV SCH (06:30)
[2022-08-25] MEDS ORDERED: ASPIRIN 325 MG TABLET PO ONE (07:23)
[2022-08-25] MEDS ORDERED: ASPIRIN 300 MG SUPP.RECT PR ONE (08:02)
[2022-08-25] MEDS ORDERED: ACETAMINOPHEN 1000 MG/100 ML BAG IVPB PRN (08:13)
[2022-08-25] MEDS ORDERED: LACTATED RINGERS SOLUTION 1,000 ML/1,000 ML INFUS.BAG IV SCH (08:15)
[2022-08-25] MEDS ORDERED: ASPIRIN 300 MG SUPP.RECT RC ONE (08:19)
[2022-08-25 08:56] LABS: URINE UREA NITROGEN 757 mg/dL (350-1000)
[2022-08-25] MEDS ORDERED: PANTOPRAZOLE SODIUM 40 MG VIAL ONE (09:31)
[2022-08-25] MEDS: PANTOPRAZOLE SODIUM 40 MG VIAL IVPUSH SCH (09:41)
[2022-08-25 10:14] LABS: CHLORIDE 132 mmol/L (98-107)
[2022-08-25 10:17] LABS: YEAST POSITIVE (NEGATIVE)
[2022-08-25 10:17] LABS: CALCIUM 8.9 mg/dL (8.5-10.1); CO2 30 mmol/L (21-32); GLUCOSE,RANDOM 332 mg/dL (74-106)
[2022-08-25 10:18] LABS: BLOOD UREA NITROGEN 53.5 mg/dL (7-18)
[2022-08-25 10:21] LABS: CREATININE 1.7 mg/dL (0.55-1.3)
[2022-08-25 10:23] LABS: ANION GAP 3 MMOL/L (8-16); SODIUM 165 mmol/L (136-145)
[2022-08-25 11:47] LABS: HEMATOCRIT 39.7 % (35.4-49); HEMOGLOBIN 12.6 GM/dL (11.7-16.9); MCH 26.5 pg (25.7-33.7); MCHC 31.7 g/dl (32.0-35.9); MEAN CELL VOLUME 83.6 fl (80-96); MEAN PLT VOLUME 10.6 fl (7.5-11.1); PLATELET COUNT 185 10^3/uL (134-434); RBC 4.75 M/mm3 (4.00-5.60); WHITE BLOOD COUNT 13.3 K/mm3 (4.0-10.0)
[2022-08-25 12:06] LABS: CHLORIDE 133 mmol/L (98-107)
[2022-08-25 12:08] LABS: CALCIUM 8.5 mg/dL (8.5-10.1); CO2 27 mmol/L (21-32)
[2022-08-25 12:09] LABS: BLOOD UREA NITROGEN 54.1 mg/dL (7-18); GLUCOSE,RANDOM 319 mg/dL (74-106)
[2022-08-25 12:12] LABS: ANION GAP 5 MMOL/L (8-16); CREATININE 1.6 mg/dL (0.55-1.3); SODIUM 165 mmol/L (136-145)
[2022-08-25 13:34] LABS: EPI CELLS 4 /uL (0-25.1); HYALINE CASTS 1 /uL (0-3.1); PH,URINE 5.5 (5.0-8.0); URINE APPEARANCE CLOUDY; URINE BACTERIA 159 /uL (0-1359); URINE BILIRUBIN NEGATIVE (NEGATIVE); URINE COLOR YELLOW; URINE GLUCOSE (UA) TRACE (NEGATIVE); URINE KETONE TRACE (NEGATIVE); URINE LEUK ESTERASE 2+ (NEGATIVE); URINE NITRITE NEGATIVE (NEGATIVE); URINE PROTEIN 2+ (NEGATIVE); URINE RBC 74 /uL (0-23.9); URINE UROBILINOGEN 0.2 mg/dL (0.2-1.0); URINE WBC 2477 /uL (0-25.8)
[2022-08-25] MEDS: SODIUM CHLORIDE 0.45% 1,000 ML IV SCH (14:03)
[2022-08-25] MEDS ORDERED: VANCOMYCIN/WATER FOR INJ (PEG) 1,000 MG/200 ML BAG IVPB ONE ×2 (14:27→15:00)
[2022-08-25] MEDS ORDERED: INSULIN SLIDING SCALE (NOVOLOG) 1 VIAL SQ SCH (16:30)
[2022-08-25] MEDS: INSULIN SLIDING SCALE (NOVOLOG) 1 VIAL SQ SCH ×2 (17:34→21:48)
[2022-08-25] MEDS: CEFEPIME 1 GM in DEXTROSE 5%-WATER 100 ML IVPB SCH (21:47)
[2022-08-26] MEDS: SODIUM CHLORIDE 0.45% 1,000 ML IV SCH ×2 (01:40→15:00)
[2022-08-26] MEDS: INSULIN SLIDING SCALE (NOVOLOG) 1 VIAL SQ SCH ×4 (06:41→21:23)
[2022-08-26 09:22] LABS: CHLORIDE 128 mmol/L (98-107)
[2022-08-26 09:28] LABS: CALCIUM 8.7 mg/dL (8.5-10.1)
[2022-08-26 09:29] LABS: ALBUMIN 2.4 g/dl (3.4-5.0); BLOOD UREA NITROGEN 44.3 mg/dL (7-18); CO2 29 mmol/L (21-32); GLUCOSE,RANDOM 227 mg/dL (74-106)
[2022-08-26 09:31] LABS: SGPT/ALT 13 U/L (13-61)
[2022-08-26 09:32] LABS: CREATININE 1.3 mg/dL (0.55-1.3); SGOT/AST 16 U/L (15-37)
[2022-08-26 09:33] LABS: BILIRUBIN,TOTAL 0.6 mg/dL (0.2-1); TOT PROT 5.9 g/dl (6.4-8.2)
[2022-08-26 09:36] LABS: ALK PHOS 91 U/L (45-117); ANION GAP 5 MMOL/L (8-16); SODIUM 162 mmol/L (136-145)
[2022-08-26] MEDS: PANTOPRAZOLE SODIUM 40 MG VIAL IVPUSH SCH (09:47)
[2022-08-26] MEDS: CEFEPIME 1 GM in DEXTROSE 5%-WATER 100 ML IVPB SCH ×2 (09:47→21:22)
[2022-08-27] MEDS: INSULIN SLIDING SCALE (NOVOLOG) 1 VIAL SQ SCH ×4 (06:03→22:31)
[2022-08-27] MEDS: SODIUM CHLORIDE 0.45% 1,000 ML IV SCH (06:38)
[2022-08-27 08:29] LABS: CALCIUM 8.3 mg/dL (8.5-10.1)
[2022-08-27 08:30] LABS: BLOOD UREA NITROGEN 29.6 mg/dL (7-18); CREATININE 1.1 mg/dL (0.55-1.3)
[2022-08-27 08:32] LABS: BILIRUBIN,TOTAL 0.6 mg/dL (0.2-1)
[2022-08-27] MEDS: CEFEPIME 1 GM in DEXTROSE 5%-WATER 100 ML IVPB SCH ×2 (09:51→22:31)
[2022-08-27] MEDS: PANTOPRAZOLE SODIUM 40 MG VIAL IVPUSH SCH (09:52)
[2022-08-27 10:40] LABS: BASO % 0.4 % (0-2.0); EOS % 2.9 % (0-4.5); LYMPH % 22.7 % (8-40); MCH 26.9 pg (25.7-33.7); MCHC 32.4 g/dl (32.0-35.9); MEAN CELL VOLUME 83.1 fl (80-96); MONO % 6.3 % (3.8-10.2); NEUT % 67.7 % (42.8-82.8); PLATELET COUNT 143 10^3/uL (134-434); RBC 4.46 M/mm3 (4.00-5.60); RDW 15.8 % (11.9-15.9); WHITE BLOOD COUNT 10.3 K/mm3 (4.0-10.0)
[2022-08-27] MEDS ORDERED: SODIUM CHLORIDE 0.45% 1,000 ML IV SCH (12:25)
[2022-08-28 00:01] VITALS: BMI 16.4
[2022-08-28] MEDS: INSULIN SLIDING SCALE (NOVOLOG) 1 VIAL SQ SCH ×4 (06:26→21:45)
[2022-08-28 08:54] LABS: BASO % 0.5 % (0-2.0); EOS % 2.4 % (0-4.5); HEMATOCRIT 36.5 % (35.4-49); HEMOGLOBIN 11.9 GM/dL (11.7-16.9); LYMPH % 20.9 % (8-40); MCH 26.6 pg (25.7-33.7); MCHC 32.5 g/dl (32.0-35.9); MEAN CELL VOLUME 81.7 fl (80-96); MEAN PLT VOLUME 10.7 fl (7.5-11.1); NEUT % 70.2 % (42.8-82.8); PLATELET COUNT 134 10^3/uL (134-434); RBC 4.47 M/mm3 (4.00-5.60); RDW 15.5 % (11.9-15.9); WHITE BLOOD COUNT 9.7 K/mm3 (4.0-10.0)
[2022-08-28] MEDS: CEFEPIME 1 GM in DEXTROSE 5%-WATER 100 ML IVPB SCH ×2 (10:13→21:44)
[2022-08-28] MEDS: PANTOPRAZOLE SODIUM 40 MG VIAL IVPUSH SCH (10:13)
[2022-08-28 10:34] LABS: CALCIUM 7.8 mg/dL (8.5-10.1)
[2022-08-28 10:35] LABS: ALBUMIN 1.9 g/dl (3.4-5.0); BLOOD UREA NITROGEN 21.1 mg/dL (7-18)
[2022-08-28 10:38] LABS: CREATININE 0.9 mg/dL (0.55-1.3)
[2022-08-28 10:39] LABS: BILIRUBIN,TOTAL 1.1 mg/dL (0.2-1)
[2022-08-28] MEDS: SODIUM CHLORIDE 0.45% 1,000 ML IV SCH (15:48)
[2022-08-28] MEDS: MIRTAZAPINE 15 MG TABLET (FP) PO SCH (21:45)
[2022-08-29] MEDS: INSULIN SLIDING SCALE (NOVOLOG) 1 VIAL SQ SCH ×4 (06:44→22:02)
[2022-08-29] MEDS: CEFEPIME 1 GM in DEXTROSE 5%-WATER 100 ML IVPB SCH ×2 (09:34→21:52)
[2022-08-29] MEDS: PANTOPRAZOLE 40 MG TABLET PO SCH (09:34)
[2022-08-29] MEDS: SODIUM CHLORIDE 0.45% 1,000 ML IV SCH (17:11)
[2022-08-29] MEDS: MIRTAZAPINE 15 MG TABLET (FP) PO SCH (21:52)
[2022-08-30] MEDS: INSULIN SLIDING SCALE (NOVOLOG) 1 VIAL SQ SCH (06:36)
[2022-08-30] MEDS ORDERED: INSULIN (LEVEMIR) 100 UNITS/ML UNITS SQ SCH (07:00)
[2022-08-30] MEDS ORDERED: INSULIN (LEVEMIR) 100 UNITS/ML UNITS SQ ONE (07:04)
[2022-08-30 09:32] VITALS: BP 112/65; PULSE 69; RESP 18; TEMP 98.8
[2022-08-30] MEDS: PANTOPRAZOLE 40 MG TABLET PO SCH (09:48)
[2022-08-30] MEDS: CEFEPIME 1 GM in DEXTROSE 5%-WATER 100 ML IVPB SCH (09:48)
== END 2022-08-30 13:23 | DRG 871 ==
LOC: JER 21:23 → JERBED 23:49 → J4W 08-25 18:28
PROVIDERS: ADMIT Family Medicine; ATTEND Family Medicine
DX: A41.9 Sepsis, unspecified organism (principal); E43 Unspecified severe protein-calorie malnutrition; L89.153 Pressure ulcer of sacral region, stage 3; G93.41 Metabolic encephalopathy; R64 Cachexia; N17.9 Acute kidney failure, unspecified; N39.0 Urinary tract infection, site not specified; Z68.1 Body mass index [BMI] 19.9 or less, adult; E87.0 Hyperosmolality and hypernatremia; E87.20 Acidosis, unspecified; I12.9 Hypertensive chronic kidney disease with stage 1 through stage 4 chronic kidney disease, or unspecified chronic kidney disease; F03.90 Unspecified dementia, unspecified severity, without behavioral disturbance, psychotic disturbance, mood disturbance, and anxiety; N18.9 Chronic kidney disease, unspecified; I25.10 Atherosclerotic heart disease of native coronary artery without angina pectoris; Z95.1 Presence of aortocoronary bypass graft; N31.9 Neuromuscular dysfunction of bladder, unspecified; E11.65 Type 2 diabetes mellitus with hyperglycemia; E78.5 Hyperlipidemia, unspecified; D72.829 Elevated white blood cell count, unspecified; N40.0 Benign prostatic hyperplasia without lower urinary tract symptoms; K21.9 Gastro-esophageal reflux disease without esophagitis; E86.0 Dehydration; R62.7 Adult failure to thrive
CPT/HCPCS: 0241U-QW; 36415; 71045-TC-FY; 80048; 80053; 81003; 82010; 82570; 82962; 83036; 83605; 83735; 83930; 83935; 84100; 84300; 84484; 84540; 85025; 85027; 87040; 87086; 93005; 93010; 99285-25